=== PATIENT | female | born 1965 | race Asian ===

== ENCOUNTER 2017-04-07 07:45 | Outpatient (CLI) | payer BC | END 2017-04-07 19:56 | disposition home or self-care (01) | LOC: SMA 07:45 | PROVIDERS: ATTEND Obstetrics & Gynecology Gynecology | DX: N64.4 Mastodynia (principal); R92.8 Other abnormal and inconclusive findings on diagnostic imaging of breast | CPT/HCPCS: 76642; G0204 ==

== ENCOUNTER 2017-05-04 13:51 | Outpatient (CLI) | payer BC | END 2017-05-04 20:32 | disposition home or self-care (01) | LOC: SRD 13:51 | DX: R05 Cough (principal) | CPT/HCPCS: 71020-TC ==